=== PATIENT | male | born 1950 | race Caucasian/White ===

== ENCOUNTER 2021-02-18 16:15 | Emergency (ER) | payer OTHER, MEDICARE ==
[~2021-02-18] VITALS: Ht 180.3 cm; Wt 77.1 kg
[2021-02-18] MEDS ORDERED: LIPITOR 20 MG T20 M1 PO (16:28)
[2021-02-18] MEDS ORDERED: BUSPIRONE HCL15 MG PO (16:28)
[2021-02-18] MEDS ORDERED: CENTRUM SILVER1 EAC5 PO (16:29)
[2021-02-18] MEDS ORDERED: LEXAPRO20 MG PO (16:29)
[2021-02-18] MEDS ORDERED: ARICEPT10 M1 PO (16:29)
[2021-02-18] MEDS ORDERED: GUANFACINE HCL1 MG PO (16:30)
[2021-02-18] MEDS ORDERED: VITAMIN D350 MCG PO (16:31)
[2021-02-18] MEDS ORDERED: RISPERDAL0.5 MG PO (16:31)
[2021-02-18 17:23] LABS: ABSOLUTE NEUTROPHILS 4.4 thou/uL (1.4-8.2); ANION GAP 9 mmol/L (7-16); BASOPHILS 1.1 % (0.0-2.0); BUN 23 mg/dL (7-18); CALCIUM 9.3 mg/dL (8.5-10.1); CHLORIDE 106 mmol/L (98-107); CO2 27 mmol/L (21-32); CREATININE 1.2 mg/dL (0.7-1.3); EOSINOPHILS 3.1 % (0.0-3.0); GLUCOSE 105 mg/dL (74-106); HEMATOCRIT 42.4 % (42.0-52.0); HEMOGLOBIN 14.6 gm/dL (14.0-18.0); LYMPHOCYTES 21.5 % (24.0-44.0); MCH 32.8 pg (26.0-34.0); MCHC 34.3 g/dL (28.0-37.0); MCV 95.6 fL (80.0-100.0); MONOCYTES 8.8 % (1.0-8.0); PLATELET COUNT 183 thou/uL (150-400); POLYS 65.5 % (36.0-66.0); POTASSIUM 4.3 mmol/L (3.5-5.1); RBC 4.44 mil/uL (4.50-6.00); RDW 13.9 % (10.5-14.5); SODIUM 142 mmol/L (136-145); WBC 6.7 thou/uL (4.0-11.0)
[2021-02-18 17:33] LABS: ALBUMIN 3.9 g/dL (3.4-5.0); SGOT 22 U/L (15-37); SGPT 24 U/L (30-65); TOTAL BILIRUBIN 0.6 mg/dL (0.2-1.0); TOTAL PROTEIN 7.2 g/dL (6.4-8.2); TROPONIN-I <0.06 ng/mL (<0.06)
[2021-02-18 18:21] LABS: URINE BILIRUBIN NEGATIVE (Negative); URINE BLOOD NEGATIVE (Negative); URINE CLARITY CLEAR; URINE COLOR YELLOW; URINE GLUCOSE-RANDOM* NEGATIVE (Negative); URINE KETONES NEGATIVE (Negative); URINE LEUKOCYTES-REFLEX NEGATIVE (Negative); URINE NITRITE-REFLEX NEGATIVE (Negative); URINE PROTEIN (DIPSTICK) NEGATIVE (Negative); URINE SPECIFIC GRAVITY >= 1.030 (1.005-1.035); URINE UROBILINOGEN 0.2 E.U./dl (0.2-1.0)
[2021-02-18 20:15] VITALS: BP 110/48
--- NOTE | 2021-02-19 07:49 | EKG ---
[facility] [place] [address] ELECTROCARDIOGRAM REPORT Name: DEMI MARTINEZ [id number] Admission: 02/18/21 Attend Phys: Discharge: 02/18/21 Date of : 48 Report #: [id number] [facility] ED Test Date: 2021-02-18 Test Time: 17:08:19 Pat Name: DEMI MARTINEZ Department: Room: Gender: M Graduate Fellow: : 1950 Requested By: Lenard Ragland Order Number: [id number] MD: Mikael Loera Measurements Intervals Mcrae Rate: 60 P: 71 SD: 144 QRS: -31 QRSD: 111 T: 73 QT: 566 QTc: 566 Interpretive Statements Pacemaker spikes or artifacts Sinus rhythm Supraventricular bigeminy Left axis deviation Prolonged QT interval Baseline wander in lead(s) V3,V4 No previous ECG available for comparison Electronically Signed On 02-19-2021 7:49:02 CDT by Mikael Loera [email or web address] <ELECTRONICALLY SIGNED> By: Mikael Loera MD, [facility] 02/19/21 0749 1708 07 Mikael Loera MD, FACC /EPI
== END 2021-02-18 21:18 ==
LOC: ER 16:15
PROVIDERS: Emergency Medicine
DX: R45.1 Restlessness and agitation (principal); Z20.822 Contact with and (suspected) exposure to COVID-19; F03.90 Unspecified dementia, unspecified severity, without behavioral disturbance, psychotic disturbance, mood disturbance, and anxiety; F32.9 Major depressive disorder, single episode, unspecified; F41.9 Anxiety disorder, unspecified; E78.00 Pure hypercholesterolemia, unspecified; Z79.899 Other long term (current) drug therapy; Z88.0 Allergy status to penicillin

== ENCOUNTER 2021-02-18 21:30 | Inpatient (IN) | payer OTHER, MEDICARE ==
[~2021-02-18] VITALS: Ht 180.3 cm; Wt 76.4 kg
[~2021-02-18 21:30] MED LIST: ARICEPT10 M1 PO; BUSPIRONE HCL15 MG PO; CENTRUM SILVER1 EAC5 PO; GUANFACINE HCL1 MG PO; LEXAPRO20 MG PO; LIPITOR 20 MG T20 M1 PO; RISPERDAL0.5 MG PO; VITAMIN D350 MCG PO
--- NOTE | 2021-02-19 04:43 | NUR ---
PATIENT ADMITTED TO [facility] FROM [facility] ED AFTER MED CLEARANCE AND NEGATIVE COVID RESULT. PATIENT PRESENTED TO THE HOSPITAL WITH HIS . HE LIVES AT HOME WITH BUT HAS BEEN ATTENDING ADULT DAY CARE DURING THE DAY. PATIENT BEGAN WITH INCREASED AGITATION IN LAST WEEK. HIS MEDS CURRENTLY ARE BEING MONITORED BY PSYCH DR'Savannah AT [facility], DR WAGNER AND DR DE LUNA. PATIENT WAS DIAGNOSED WITH MND IN 2018 AND HAS INCREASED DEMENTIA IN LAST 2 YEARS. PATIENT BECAME AGITATED AT ADULT DAY CARE AND THREATENED AND TRIED HITTING THE DIRECTOR. HE HAS BEEN EXPELLED FROM THE DAYCARE. IS AFRAID TO BE AT HOME WITH HIM. SHE IS IN THE MIDDLE OF FILLING OUT PAPERWORK TO APPLY FOR MEDICAID. PT CURRENTLY HAS [facility] AND MEDICARE A AND B FOR INSURANCE. IS WANTING HELP FOR PERMANENT PLACEMENT FOR PATIENT IN A LOCK DOWN FACILITY. PT CAME BY WC TO [facility]. HE IS A/0X1. HE APPEARED ANXIOUS. HE WAS OFFERED FOOD AND DRINK BUT DECLINED. PATIENT REFUSED TO HAVE VITAL SIGNS DONE AND WHEN TRIED AGAIN BY Clara PEDERSEN BOX STORAGE WORKER HE BECAME VERY AGITATED AND YELLED AT HER. HIS VITALS WERE STABLE IN ED HIS BP WAS 119/57, P 57 AND 02 WAS 97% ON RA T 97.3. PATIENT WALKS WITH A STEADY GAIT AND WAS RESTLESS. HE PACED THE HALLS ALL EVENING. VERY POOR SHORT TERM MEMORY. HE KEPT ASKING THE NURSE, "WHERE'S JORGE ALBERTO?" AND "WHY AM I HERE?" HE DENIES ANY PROBLEMS WITH HIS MEMORY. HE IS SUSPICIOUS AND PARANOID AT TIMES AND DOES NOT BELIEVE STAFF'S ANSWERS TO HIS QUESTIONS. PATIENT BECAME MORE AGITATED THRU THE EVENING AND KNOCKING ON THE NURSE STATION DOOR AND KNOCKING ON GLASS WINDOWS. HE FOLLOWED THE NURSES AROUND AND KEPT REPEATING HIS QUESTIONS. AT ONE POINT HE TRIED TO ENTER NURSE STATION AND WAS AGITATED. HE WOULD NOT COMPLY AND LEAVE WHEN ASKED TO STEP OUT AND NURSE ATHLETIC SHOE DESIGNER, BENNY PHYSICALLY HAD TO HOLD HIM BACK. PATIENT WAS YELLING AND INSISTANT AND THREATENING TO HIT. SECURITY WAS CALLED AND DR GLOVER. ORDER FOR GEODON 15MG IM WITH MANUAL HOLD GIVEN. PATIENT WAS TAKEN TO ROOM BY TWO SECURITY GUARDS AND THEY SECURED PATIENT THIS NURSE GAVE INJECTION. PATIENT WOULD NOT STAY IN ROOM SO HAD STAFF FOLLOW HIM AT A SHORT DISTANCE TO MAKE SURE PT DID NOT FALL OR BECOME TOO DROWSY FROM SHOT. GEODON DID NOT SEEM TO AFFECT PATIENT AND CALLED TO LET HIM KNOW [address] WAS GIVING ORDER FOR HALDOL 5MG AND ATIVAN 1MG IM AND PATIENT WAS VERY UPSET WHEN NURSE TOLD HIM AND NURSE GAVE HIM CHOICE TO GO LAY DOWN AND GO TO SLEEP NOW OR ELSE THE SHOT WOULD BE GIVEN. PT CALMED DOWN AND SAID HE WOULD GO TO BED. THIS NURSE AND ANOTHER NURSE ASSISTED PATIENT TO BED AND HELPED HIM CHANGE CLOTHES. PATIENT HAS STAYED IN BED. HE HAS BEEN UP TO THE BATHROOM A COUPLE OF TIMES AND THEN REDIRECTED BACK TO BED. HE HAD TYLENOL 650MG PO AROUND 0400 D/T HE SAID HE NEEDED SOMETHING FOR SLEEP. IT WAS TOO LATE TO GIVE TRAZADONE. PATIENT TOOK PILLS WHOLE WITH WATER AND WAS POLITE AND COOPERATIVE AT THIS TIME. BED IN LOW POSITION AND BED ALARM IS ON. ROUTINE ROUNDS TO ASSESS SAFETY AND STATUS OF PATIENT.
[2021-02-19 06:28] LABS: CHOLESTEROL 132 mg/dL (<200); HDL CHOLESTEROL 50 mg/dL (>40); LDL CHOLESTEROL 72 mg/dL (<100); TC:HDL 2.6 Ratio (Not establshd); TRIGLYCERIDE 52 mg/dL (<150); VLDL 10 mg/dL (<40)
[2021-02-19 06:39] LABS: SERUM ASSESSMENT Clear
--- NOTE | 2021-02-19 17:50 | NUR ---
PT ALERT TO SELF ONLY. WONDERING AROUND THE UNIT LOOKING FOR "JORGE ALBERTO" PT REFUSED MORNING MEDICATIONS, BREAKFAST AND LUNCH. PT DENIES SI/HI/PAIN/SOA. PT INTERACTS WELL WITH STAFF AND SOME PEERS. PT DID TAKE HIS EVENING MEDICATIONS AND ATE DINNER. SPOKE WITH PT TO UPDATE ON CARE. WILL CONTINIUE TO MONITOR.
--- NOTE | 2021-02-19 17:56 | NUR ---
RYAN and Dr. Contreras were able to speak with the Pt's DPOA, Sheri Calixto. Sheri gave a brief history on the Pt. Pt was dx with Dementia at 55 years old. Pt sees Dr. Keith for psychiatry at . Pt was recently terminated from his adult daycare program due to agressive behaviors. Pt is in need of a medicaid application for placement. Sheri is currently working on dividing assests. Pt has 2 adult daughters however they are estranged from the Pt and have been for many years. Pt has 2 sister 1 with bipolar and the other unknown mental illness. Pt struggled with alchol use but quit 26 years ago. 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 Pt had been 3x. Pt has been to his current for 11 years. Pt did get the COVID vaccine. Dr. Contreras discussed medications and side effects. Update was given on the Pt. Sheri stated she was no longer able to handle the Pt in the home and has started to look for placments. Sheri had no further questions or concerns at this time. RYAN will continue to follow
[2021-02-19 20:07] VITALS: BP 122/67
[2021-02-20 01:24] LABS: GLYCOHEMOGLOBIN (HGB A1C) 5.4 % (4.8-5.6)
--- NOTE | 2021-02-20 06:37 | NUR ---
02-19-21 CARE TRANSFERRED 1900 OBSERVED PT SITTING ON COUCH IN DAY ROOM. LATER PT AAOX1, VSS, RR EVEN AND NONLABORED ON RA. PT DENIES PAIN AND SI/HI. PT PRESENTS CONFUSED, BUT HAS BEEN CALM AND COOPERATIVE THROUGHOUR NURSING ASSESSMENT. DURING MEDICATION ADMIN PT HAD NO DIFFICULTIES. PT IWLL CONTINUE TO BE MONITOR PER [facility] PROTOCL.
--- NOTE | 2021-02-20 07:38 | NUR ---
New admit to [facility] with unspecified dementia, behaviors. On regular diet, eating 100% of first 2 meals on unit. BMI 23.5. Medications include MVI and vitamin D. Presents low nutrition risk
[2021-02-20 10:51] VITALS: BP 160/135
[2021-02-20 11:23] VITALS: BP 158/98
--- NOTE | 2021-02-20 12:33 | NUR ---
1233 RESUMMED CARE FROM OVERNIGHT SHIFT THIS AM, PATIENT IN ROOM NOT WANTING TO GET OUT OF BED. HE STATES HE IS TIRED AND WANTED TO REST I TOLD PATIENT I WOULD GIVE HIM A FEW MORE MINUTES TO REST. PATIENT DID GET UP ATE BREAKFST TOOK MEDICATION WITHOUT INCIDENCE. PATIENT ALERT TO SELF ONLY PATIENT UNABLE TO TELL ME ABOUT SI/HI/AH/VH DUE TO NEURO COGNITIVE DO. PATIENT CALM QUIET PATIENTS ABDOMEN SOFT BOWEL SOUNDS PRESENT PATIENTS LUNGS CLEAR. WILL CONTINUE TO MONITOR PATIENT FOR SAFETY AND BEHAVIORS.
[2021-02-20 19:55] VITALS: BP 114/78
[2021-02-20 20:03] VITALS: BP 114/78
--- NOTE | 2021-02-20 20:39 | H ---
[facility] [address] [place] [address] HISTORY AND PHYSICAL Name: DEMI MARTINEZ Room #: 527A-A ADM IN M.R.#: [id number] Admission: 02/18/21 Attend Phys: Nathan Dill DO Discharge: Date of : 48 Report #: [id number] THIS REPORT FOR: cc: FAM - Family physician unknown FAM - Family physician unknown Nathan Dill DO ~ DATE OF SERVICE: 02/19/2021 INPATIENT PSYCHIATRIC EVALUATION ATTENDING PSYCHIATRIST: Nathan Dill DO MEDICAL CONSULTANTS: Miracle Villegas and Ron Clark MD, and his hospitalist team. REASON FOR ADMISSION: Aggressive and impulsive behaviors, 's inability to care for the patient. SOURCES OF INFORMATION: Interview with the patient, records from [facility], telephone conversations with Sheri. HISTORY OF PRESENT ILLNESS: This is a 70-year-old male appearing older than stated age. The patient was brought to the [facility] ER last night, evaluated by Dr. Ragland. The story there was brought by his spouse, when asked what brought him to the ED, he states "my ." Per the patient's , the patient began to act erratically and forgetful about a week ago. Since then, he has become aggressive towards family and staff at his adult daycare. The patient was terminated from the daycare for being consistently aggressive and pounding on windows. His states the patient has gotten aggressive with her and has been having delusions about time and place. Appears to be impatient more and is much easier to agitate. PAST MEDICAL HISTORY: Includes dementia, depression, anxiety and says HCL but I believe it means hyperlipidemia. HOME MEDICATIONS: Atorvastatin, buspirone, multivitamins, donepezil, escitalopram, guanfacine, risperidone, cholecalciferol. ALLERGIES: PENICILLIN. SOCIAL HISTORY: Alcohol use, distant history, but has been sober 26 years. This is the patient's third marriage. They have been 11 years. First 7 years were good. Interestingly, the states he was diagnosed with early onset dementia at age 55. It did not progress and that diagnosis was refuted for a time. Interestingly, I have neuropsychological evaluation done by Dr. Aguilar in dated 11/21/2020 where there were findings of a moderate [facility] [address] [place] [address] HISTORY AND PHYSICAL Name: DEMI MARTINEZ Room #: 527A-A [facility]#: [id number] Admission: 02/18/21 Attend Phys: Nathan Dill DO Discharge: Date of : 48 Report #: [id number] Rodriguez states no behavioral testing was notable for signs of cortical dysfunction including ideomotor apraxia, very similar to previous evaluations. There appeared to be clear picture with quite significant cognitive impairment, likely reflecting substantial decline since most recent previous evaluation in 06/2019, although there has been an unusually prolonged and variable cognitive symptom course. The patient was born in the [place] area, raised in [place]. He had 3 years of college. 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 The patient has a couple of daughters, but they are not that involved with the patient. He completed 14 years of formal education. The manages household finances, which is not a recent change. She also manages his medication regimen. He has not been driving for approximately 8 years. The performance of household tasks was declined. His noted that he has difficulty using a cell phone and television remote without assistance. Has confusion about knowing what to do and when to shower, etc. He has got a good family history here. Depression in mother, blindness in mother, cancer in father, heart disease in father, depression in father. Blindness, maternal grandmother. Negative history of cataracts, diabetes, glaucoma, macular degeneration, retinal detachment of dementia. There is a previous [id number] history of smoking, quit in 04/1994. Dr. Dionne Olvera evidently is his psychiatrist. He may see a resident at [facility]. VITAL SIGNS: Most recently, temperature 97.3, pulse 70, respirations 12, BP 110/48, O2 sat 96%. LABORATORY DATA: From the ER, hematology: Hemoglobin and hematocrit 14.6 and 42.4, white count 6.7, platelet count 183. Chemistry: Sodium 142, potassium 4.3, chloride 106, bicarbonate 27, anion gap 9, BUN 23, creatinine 1.2, estimated GFR 60, glucose 105, calcium 9.3, total bilirubin 0.6, AST 22, ALT 24, alkaline phosphatase 67. Troponin less than 0.06, total protein 7.2, albumin 3.9, triglycerides 52, cholesterol 132, LDL 72, HDL 50. Urinalysis was clean. COVID-19 serology was negative. A 12-lead was done in the ED and ventricular rate of 60, NJ interval 144 milliseconds, QTc 566 milliseconds. Pacemaker spikes are artifacts in sinus rhythm. CURRENT MEDICATIONS IN THE HOSPITAL. I made his trazodone p.r.n. at 150 mg. In addition, Depakote I started him on 750 mg ER at bedtime, olanzapine I started him on 2.5 mg oral twice daily with IM backup. The risperidone he had been on previously I am going to go ahead and discontinue that. I am not sure where the risperidone came from, but I will discontinue it in any event. The patient went ahead and discontinued buspirone, donepezil on lack of clinical benefit at this time, guanfacine on, Motrin had been ordered, discontinue that; we will continue multivitamin, trazodone, the Depakote, the olanzapine as I reviewed. PHYSICAL EXAMINATION: [facility] [address] [place] [address] HISTORY AND PHYSICAL Name: DEMI MARTINEZ Room #: 527A-A ADM IN ..#: [id number] Admission: 02/18/21 Attend Phys: Nathan Dill DO Discharge: Date of : 48 Report #: [id number] GENERAL: Slow gait, normal station. MENTAL STATUS EXAMINATION: This is a well-developed, ill-appearing male, I believe wearing glasses. Attention limited. Concentration impaired. Speech, slow, soft. Thought process linear, hypervigilant on the woman named Sheri, I think he realizes is his . He denied suicidal or homicidal ideation, auditory, visual, or tactile hallucinations. Memory known to be impaired, not formally tested. Insight is impaired, judgment is impaired. Fund of knowledge well below average. Mood and affect congruent, constricted. FORMULATION: A 70-year-old male admitted for behavioral disturbance, living at home with his , needs memory care placement. 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 PLAN: The patient is admitted to the geriatric psychiatry unit at [facility]. He is a no code. Continue to evaluate and stabilize. His DPOA is enacted. However, at the moment, it sounds like there is a healthcare DPOA missing, but there is a general financial DPOA. I agree the patient will need placement. We will need to get behaviors stabilized before we can move in any direction. Time spent on this case greater than 60 minutes, greater than 50% of time spent on reviewing records and coordination of care. STRENGTHS: Insured, supportive family. WEAKNESSES: Early dementia with significant progression at present. Quite guarded prognosis. <ELECTRONICALLY SIGNED> By: Nathan Dill DO 02/20/21 2039 [id number] Nathan Dill DO /nt
--- NOTE | 2021-02-20 23:17 | NUR ---
Assumed care on 02/20/21 @ 1900, ambulating throughout the day room and hallways of the [facility], asking Where is Sheri, and when given an explaination, such as, You are in [facility], Sheri is at home, responds with paranoid ideation and denies the explaination. Took meds whole with applesauce. Assisted patient to call and speak to his , after which he went to bed. Bed in low position, will continue to monitor for safety and comfort.
[2021-02-21 11:08] VITALS: BP 121/57
[2021-02-21 11:10] VITALS: BP 131/80
--- NOTE | 2021-02-21 18:44 | NUR ---
SITTING IN DAYROOM EATING BREAKFAST WITH MALE PEERS ON INITAL ASSESSMENT THIS AM. DURING AM MED PASS COMPLIENT WITH SWALLOWUING MEDIATIONSAWHOLAND DID EAT APPROX 25 PERCENT OF MEALPROVIDED.DURING AM ASSESSMENT IS NOTED TO BE VERY CONFUSED-ASKING TO USE BATHROOM OVER AND OVER AGAIN
[2021-02-21 20:07] VITALS: BP 139/76
--- NOTE | 2021-02-22 01:49 | NUR ---
Assumed care on 02/21/21 @ 1900, ambulating throughout the mileu with steady gait. Compliant with medications, taking meds whole with thin water, and cooperative with care. A&Ox1 oriented to self only. Retired to bed @ HS, bed in low position, eyes closed, respirations even and unlabored, will continue to monitor for safety and comfort as per unit protocol.
[2021-02-22 09:26] VITALS: BP 137/71
[2021-02-22 19:39] VITALS: BP 136/100
[2021-02-23 02:11] VITALS: BP 136/100
--- NOTE | 2021-02-23 03:56 | NUR ---
02/22/21- Pt is up ambulating in hallway intermittently, talked with spouse prior to going to bed about 2100, medications given whole with water. Pt gets up intermittently, Pt is Alert to self, affect is pleasant. Denies SI/HI/AH/VH will continue to monitor throughout shift.
[2021-02-23 09:07] VITALS: BP 131/75
[2021-02-23 09:13] VITALS: BP 131/75
--- NOTE | 2021-02-23 10:05 | NUR ---
1000 RESUMMED CARE FROM OVERNIGHT SHIFT THIS AM, PATIENT ALERT ORIENTED TO SELF. HE KNOWS HE IS NOT AT HOME BUT DOES NOT KNOW THE NAME OF THE HOSPITAL. PATIENT HAS SOME CONFUSION AND CONSTANTLY ASKS ABOUT HIS ; PATIENT CALM COOPERATIVE. HE IS EASILY REDIRECTABLE PATIENT DENIES SI/HI/AH/VH AT PRESENT. PATIENTS ABDOMEN SOFT BOWEL SOUNDS PRESENT PATIENTS LUNGS CLEAR, PATIENT NEEDS ENCOURAGEMENT TO GO TO GROUPS. WILL CONTINUE TO MONITOR PATIENT FOR SAFETY AND BEHAVIORS.
[2021-02-23 19:30] VITALS: BP 150/87
--- NOTE | 2021-02-23 19:42 | NUR ---
Assumed care on 02/23/21 @ 1900, seated in the day room next to a female patient, who he identifies as Sheri, his . Patient reoriented to where he is and to the identity of the peer, and he continues to be disoriented in thinking and intrusive in behavior with the other peers. Cooperated with assessment, HRRR, Lungs CTA ABD N x 4Q. Ambulates with a steady gait, Alert and oriented x1 to self only. Will continue to monitor for safety and comfort as per unit procotol.
[2021-02-23 19:51] VITALS: BP 150/87
[2021-02-24 09:30] VITALS: BP 135/74
[2021-02-24 11:20] VITALS: BP 138/74
--- NOTE | 2021-02-24 12:21 | NUR ---
1220 RESUMMED CARE FROM OVERNIGHT SHIFT THIS AM, PATIENT WALKING AROUND DAY ROOM. PATIENT ALERT TO SELF ONLY BUT DOES COMMUNICATE WITH OTHER PATIENTS AND STAFF. PATIENTS CALLED AND ASKED ABOUT PATIENTS PROGRESS AND TALKED WITH PATIENT. PATIENT UNABLE TO TELL ME ABOUT SI/HI/AH/VH AT PRESENT PATIENT HAS COGNITIVE DO. PATIENT CAN UNDERSTAND WHEN REDIRECTING AND HAS NOT DISPLAYED ANY BEHAVIORS. PATIENTS ABDOMEN SOFT BOWEL SOUNDS BOWEL SOUNDS PRESENT PATIENTS LUNGS CLEAR. WILL CONTINUE TO MONITOR PATIENT FOR SAFETY AND BEHAVIORS.
[2021-02-24 19:37] VITALS: BP 115/93
--- NOTE | 2021-02-25 04:11 | NUR ---
02-24-21 CARE TRANSFERRED 1900 OBSERVED PT SITTING IN DAY ROOM SOCIALIZING WITH PEERS. LATER PT AAOX1, VSS, RR EVEN AND NONLABORED ON RA, PT DENIES SI/HI AND PAIN. PT CALM AND COOPERATIVE THROUGHOUT NURSING ASSESSMENT. DURING MEDICATION ADMIN PT BECAME IRRITABLE AND INFLUENCED BY PEER, ASSISTED PT TO ROOM, PT APOLIGIZED FOR BEING IRRITABLE. PT HAS BEEN EASILY REDIRECTED AND OFTEN WANDERS INTO OTHERS ROOMS, WHILE LOOKING FOR HIS ROOM. PT WILL CONTINUE TO BE MONITOR PER B PROTOCOL.
[2021-02-25 09:50] VITALS: BP 128/80
[2021-02-25 10:33] VITALS: BP 128/80
--- NOTE | 2021-02-25 10:46 | NUR ---
1045 RESUMMED CARE FROM OVERNIGHT SHIFT THIS AM, PATIENT IN DAY ROOM TALKING WITH OTHER PATIENTS. PATIENT ALERT TO SELF ONLY PATIENT CAN COMPREHEND WHEN ASKING CERTAIN QUESTIONS. I DON'T THINK PATIENT UNDERSTANDS WHEN ASKING ABOUT SI/HI/AH/VH AT PRESENT. PATIENT HAS BEEN ASKING ABOUT GOING HOME TO AND HAS BEEN CALLING AND TALKING WITH PATIENT. PATIENTS ABDOMEN SOFT BOWEL SOUNDS PRESENT PATIENTS LUNGS. PATIENT PLEASANT HAS NOT DISPLAYED ANY BEHAVIORS. WILL CONTINUE TO MONITOR PATIENT FOR SAFETY AND BEHAVIORS.
[2021-02-25 19:00] VITALS: BP 123/74
--- NOTE | 2021-02-26 03:20 | NUR ---
02-25-21 CARE TRANSFERRED 1899. LATER PT AAOX1, VSS, RR EVEN AND NONLABORED ON RA, PT DENIES SI/HI AND PAIN, AND OBSERVED NO S/S OF PAIN AND NO SI/HI BEHAVIORS. PT PRESENTS PLESANTLY CONFUSED BUT REMAINES CALM AND COOPEATIVE. PT ASKED ABOUT JORGE ALBERTO, PT RECEPTIVE TO REASSURES, AND EASILY REDIRECTED. DURING MEDICATION ADMIN PT HAD NO DIFFICLTUIES TAKING WHOLE WITH WATER. LATER PT BED WAS ADJUSTED FOR COMFORT, LOWEST POSITION, LOCKED AND ALARM ON. PT WILL CONTINUE TO BE MONITOR PER [facility] PROTOCOL.
[2021-02-26 09:56] VITALS: BP 141/69
--- NOTE | 2021-02-26 10:31 | NUR ---
RT Progress Note- Matt has made steady progress in recreation therapy goals throughout the week since his admission. Matt no longer is intrusive to groups with questions regarding discharge or locating his . When he does ask these questions he is easily redirected and able to maintain focus on group discussion or activity. Matt attends most groups and pleasantly interacts with peers. [facility]END[facility] will continue to encourage participation and further progress.
--- NOTE | 2021-02-26 12:52 | NUR ---
Referral sent to [facility]
--- NOTE | 2021-02-26 13:11 | NUR ---
Alert and orientated to name only. Denies SI/HI. Isolating to room. Cooperative with coming out to dining room but then wants to go right back in room and lay down, repeatedly asks to go back in room. Breath sounds clear. Reg HR auscultated. Color pink with brisk capillary refill and palpable peripheral pulses. Independent with voiding. Active bowel sounds over soft, flat abdomen. Ambulates independently with steady gait. Currently in dining room, no s/o distress.
[2021-02-26 19:46] VITALS: BP 116/56
--- NOTE | 2021-02-27 04:54 | NUR ---
02-26-21 CARE TRANSFERRED 1899 OBSERVED PT WALKING IN HALLWAY. LATER PT AAOX1, VSS, RR EVEN AND NONLABORED ON RA, PT DENIES PAIN AND SI/HI, OBSERVED NO S/S OF PAIN OR NO SI/HI BEHAVIORS. PT PRESENTS PLEASANTLY CONFUSED, CALM AND COOPERATIVE. LATER PT BECAME UPSET WHEN HE WAS CONCERNED ABOUT HIS JORGE ALBERTO. PT WAS EASILY ASSISTED WITH A PHONE CALL TO AND PT WAS REASSURED. PHONE WAS RETIVED LATER OUT OF PT ROOM. PT ATE 100% HS SNACK. DURING MEDICATION ADMIN PT HAD NO DIFFICULTIES TAKING MEDICATION WHOLE WITH WATER. PT BED WAS ADJUSTED FOR COMFORT, LATER PT UP AND WANDERING FROM HIS ROOM TO NURSING STATION THROUGHT THE EVENING, PT HAS BEEN EASILY REDIRECTED. T WILL CONTINUE TO BE MONITOR PER [facility] PROTOCOL.
[2021-02-27 08:52] VITALS: BP 124/67
--- NOTE | 2021-02-27 09:32 | NUR ---
Followup: remains on [facility]. Continues to eat 100% all meals. Low nutrition risk
--- NOTE | 2021-02-27 15:11 | NUR ---
RYAN recieved a call from Zahida at [facility]. Zahida stated the Pt has been accepted by to [facility] of . Zahida stated they are able to accept the Pt or Thursday morning. Discharge was set for 02/28/2021 @ 1100. [facility] will provide tranpsortation Pt's /DPOA, Sheri, as notified of this information
--- NOTE | 2021-02-27 16:05 | NUR ---
PATIENT CARE ASSUMED 0700 - OUT ON UNIT MOST OF DAY. WANDERS ABOUT IN AND OUT OF PEERS ROOMS. THINKS RESIDENT FEMALE IS HIS . NEEDS REDIRECTION OFTEN. PLEASANT - AGREEABLE. MAKES NEEDS KNOWN WHEN NEEDING TOLLET. REQUESTS ENTRY AND DIRECTION TO ROOM OFTEN. COMPLIANT WITH MEDICATIONS. GOOD APPETITE 50 PERCENT OR MORE OF MEALS. QUIET WHEN IN DINING ROOM - CONFUSION EVIDENT BUT EASILY REDIRECTED. CALLED AND ADVISED HAD SLEPT VERY LITTLE - STATED UNUSUAL FOR HER .
[2021-02-27 19:21] VITALS: BP 119/72
--- NOTE | 2021-02-27 22:10 | NUR ---
PATIENT PACING THE FLOOR ORIENTED TO SELF ONLY. HE STATES THAT HE IS LOOKING FOR HIS . PATIENT STATES THAT HE HAS TO GET OUT OF HERE AND IS LOOKING FOR THE STAIRS. PT WAS REORIENTED THAT HE WAS IN THE HOSPITAL. PATIENT WAS ABLE TO CALL AND TALK TO HIS . PATIENT IS INTRUSIVE AND HAS TO BE DIRECTED MULTIPLE TIMES TO KEEP DISTANCE FROM PEERS, MAINLY FEMALE. PATIENT IS COOPERATIVE WITH HIS MEDICATIONS. DENIES PAIN OR NEEDS AT THIS TIME. VITAL SIGNS ARE STABLE. WILL CONITUE TO MONITOR FOR CHANGES IN STATUS.
[2021-02-28] MEDS ORDERED: DIVALPROEX SOD250 M1 PO (08:59)
[2021-02-28] MEDS ORDERED: TRAZODONE HCL100 MG PO (09:00)
[2021-02-28] MEDS ORDERED: OLANZAPINE7.5 MG PO (09:01)
[2021-02-28 09:33] VITALS: BP 140/98
[2021-02-28 09:53] VITALS: BP 119/72
--- NOTE | 2021-02-28 10:24 | NUR ---
1125 RESUMMED CARE FROM OVERNIGHT SHIFT THIS AM, PATIENT ALERT TO SELF ONLY. PATIENT ATE BREAKFAST TOOK MEDICATION WITHOUT INCIDENCE; PATIENT DID NOT SLEEP WELL LAST NIGHT. I ALLOWED PATIENT TO GO BACK TO BED FOR AWHILE PATIENT ABDOMEN SOFT BOWEL SOUNDS PRESENT. PATIENTS LUNGS CLEAR PATIENT HAS NOT DISPLAYED ANY BEHAVIORS. PATIENT IS DISCHARGING TODAY TO [facility], I CALLED REPORT TO THE FACILITY WILL CONTINUE TO MONITOR PATIENT FOR SAFETY AND BEHAVIORS.
--- NOTE | 2021-03-02 21:02 | D ---
[facility] [address] [place] [address] DISCHARGE SUMMARY Name: DEMI MARTINEZ JR Room #: 527A-A [facility] IN ..#: [id number] Admission: 02/18/21 Attend Phys: Nathan Dill DO Discharge: 02/28/21 Date of : 48 Report #: [id number] THIS REPORT FOR: cc: FAM - Family physician unknown FAM - Family physician unknown Nathan Dill DO ~ DATE OF SERVICE: 02/28/2021 INPATIENT PSYCHIATRIC DISCHARGE SUMMARY ATTENDING PSYCHIATRIST: Nathan Dill DO T[employer] CAR INSPECTOR: Dr. Shannon Jiménez DISCHARGE DIAGNOSES: Major neurocognitive disorder, most likely due to Alzheimer's disease, advanced with behavioral disturbance. MEDICAL COMORBIDITIES: For this patient include hyperlipidemia, insomnia, otherwise none. The patient is discharging to [facility] for memory care. Psychiatric medical care to be provided by receiving facility. DISCHARGE DIET: Regular. ACTIVITY LEVEL: As tolerated. The patient does require 24-hour assistance and supervision. DISCHARGE MEDICATIONS: As follows: Multivitamin oral daily, vitamin D3 of 5000 international units oral daily, Depakote ER 750 mg oral at bedtime, olanzapine 7.5 mg oral at 0900 and 2100 hours. The Depakote and olanzapine are all for impulse control. Trazodone 200 mg oral at bedtime for sleep. LABORATORY DATA: The patient's significant laboratories this admission, hemoglobin A1c 5.4. Triglycerides 52, cholesterol 132, LDL 72, HDL 50. Hematology: White count 6.7, H and H 14.6 and 42.4, platelet count 183. Chemistries: Sodium 142, potassium of 4.3, chloride 106, bicarbonate 27, anion gap 9, BUN 23, creatinine 1.2, estimated GFR 60, AST 22, ALT 24, alkaline phosphatase 67. Troponin less than 0.06. Total protein 7.2. All the lab work was done on 02/18/2021 and 02/19/2021. Urinalysis was clean. Toxicology, Depakote level 59 on 02/24/2021. COVID-19 serology was negative. REASON FOR ADMISSION: On 02/19/2021, a 70-year-old male transferred to us from [facility]. The patient had become aggressive towards his family and staff at his adult daycare. was unable to care for him. HOSPITAL COURSE: The patient was admitted to Geriatric Psychiatry Unit. Initially, the patient recused himself to his room. He did have some early [facility] [address] [place] [address] DISCHARGE SUMMARY Name: MARTINEZDEMI JR Room #: 527A-A [facility]#: [id number] Admission: 02/18/21 Attend Phys: Nathan Dill, Discharge: 02/28/21 Date of : 48 Report #: [id number] resistance taking medications, but we were able to get that hammered out and had him take Depakote. The patient had a good 5-7 days of good behavior prior to his day of discharge. The patient will need memory care. Unfortunately, he has an advanced dementia by the age of 70. PHYSICAL EXAMINATION: VITAL SIGNS: On the day of discharge are as follows: Temperature 36.4, pulse 72, respirations 17, BP 119/72, O2 sat 96%. BMI 23.5. MUSCULOSKELETAL: Normal gait and station. MENTAL STATUS EXAMINATION: This is a well-developed male appearing at least stated age. Attention impaired. Concentration impaired. Speech slow. Thought process linear, limited. Thought content, relative poverty of thought. Oriented to self, very generally to place, not to time. Denied SI, HI. Denied auditory or visual type hallucinations. Denied hopelessness, helplessness. Mood and affect was congruent, constricted. Memory known to be impaired. Insight limited. Judgment impaired. Fund of knowledge well below average. PROGNOSIS: For this patient is guarded given the advanced dementia and age 70 with relatively good physical health. <ELECTRONICALLY SIGNED> By: Nathan Dill DO 03/02/212101 [id number] Nathan Dill DO /nt
== END 2021-02-28 13:35 | DRG 57 ==
LOC: SBH 21:30
PROVIDERS: ADMIT Psychiatry & Neurology Psychiatry; ATTEND Psychiatry & Neurology Psychiatry
DX: G30.0 Alzheimer's disease with early onset (principal); F02.81 Dementia in other diseases classified elsewhere, unspecified severity, with behavioral disturbance; E78.5 Hyperlipidemia, unspecified; G47.00 Insomnia, unspecified; F32.9 Major depressive disorder, single episode, unspecified; F41.9 Anxiety disorder, unspecified; E78.00 Pure hypercholesterolemia, unspecified; Z79.899 Other long term (current) drug therapy; Z88.0 Allergy status to penicillin; Z81.8 Family history of other mental and behavioral disorders; Z87.891 Personal history of nicotine dependence; Z95.0 Presence of cardiac pacemaker
CPT/HCPCS: 10880